=== PATIENT | male | born 1975 | race Two or more races ===

== ENCOUNTER 2020-12-18 03:21 | Inpatient (IN) | payer MEDICAID, OTHER ==
[~2020-12-18] VITALS: Ht 177.8 cm; Wt 80.3 kg
[2020-12-18 05:23] LABS: BASOPHILS % (AUTO) 0.7 % (0.0-2.0); EOSINOPHILS % (AUTO) 0.1 % (1.0-6.0); HEMATOCRIT 49.6 % (41-53); HEMOGLOBIN 16.5 g/dL (13.5-17.5); LYMPHOCYTES # (AUTO) 1.3 K/uL (1.0-4.8); LYMPHOCYTES % (AUTO) 11.5 % (22.0-44.0); MEAN CORPUSCULAR HEMOGLOBIN 29.6 pg (26.0-34.0); MEAN CORPUSCULAR HGB CONC 33.3 G/dL (31.0-37.0); MEAN CORPUSCULAR VOLUME 89 fL (80-100); MONOCYTES # (AUTO) 1.1 K/uL (0.1-1.0); MONOCYTES % (AUTO) 10.4 % (2.0-9.0); NEUTROPHILS # (AUTO) 8.6 K/uL (1.8-7.7); NEUTROPHILS % (AUTO) 77.3 % (40.0-70.0); PLATELET COUNT (AUTO) 274 K/uL (150-450); RED BLOOD CELL COUNT(AUTO) 5.57 MIL/uL (4.50-5.90); RED CELL DISTRIBUTION WIDTH 13.6 % (11.5-14.5)
[2020-12-18 05:31] LABS: ANION GAP 13 mmol/L (8-16); CALCIUM, TOTAL 9.9 mg/dL (8.8-10.5); CARBON DIOXIDE 26 mmol/L (22-29); CHLORIDE 98 mmol/L (98-107); CREATININE 1.35 mg/dL (0.60-1.30); GLOMERULAR FILTR. RATE CALC 57 mL/min (>60); GLUCOSE,RANDOM 124 mg/dL (70-110); SODIUM SERUM 137 mmol/L (136-145); UREA NITROGEN, BLOOD 15 mg/dL (7-18)
[2020-12-18 05:37] LABS: ALANINE AMINOTRANSFERASE 29 U/L (12-78); ALBUMIN 4.6 g/dL (3.4-5.0); ALKALINE PHOSPHATASE 79 U/L (46-116); ASPARTATE AMINOTRANSFERASE 24 U/L (15-37); TOTAL PROTEIN, SERUM 8.9 g/dL (6.4-8.2)
[2020-12-18 07:50] LABS: COVID AG,FIA SOURCE NASAL SWAB
[2020-12-18] MEDS ORDERED: LORazepam 2 MG TABLET PO PRN (09:30)
[2020-12-18] MEDS ORDERED: HALOPERIDOL 5 MG TABLET PO PRN (09:30)
[2020-12-18 09:45] LABS: AMPHET/METH SCREEN,URINE POSITIVE (NEGATIVE); BARBITURATE SCREEN, URINE NEGATIVE (NEGATIVE); BENZODIAZEPINES SCREEN,URINE NEGATIVE (NEGATIVE); CANNABINOID SCREEN,URINE POSITIVE (NEGATIVE); COCAINE SCREEN,URINE NEGATIVE (NEGATIVE); METHADONE SCREEN, URINE NEGATIVE (NEGATIVE); OPIATE SCREEN,URINE NEGATIVE (NEGATIVE)
[2020-12-18 09:49] LABS: PHENCYCLIDINE SCREEN,URINE NEGATIVE (NEGATIVE)
[2020-12-18 09:57] LABS: APPEARANCE,URINE CLEAR (CLEAR); BILIRUBIN,URINE NEGATIVE (NEGATIVE); GLUCOSE, URINE (UA) NEGATIVE (NEGATIVE); KETONES,URINE 40 mg/dL (NEGATIVE); LEUKOCYTE ESTERASE ,URINE NEGATIVE (NEGATIVE); NITRATE,URINE NEGATIVE (NEGATIVE); OCCULT BLOOD,URINE NEGATIVE (NEGATIVE); PH,URINE 5.5 (5.0-8.0); PROTEIN,URINE NEGATIVE (NEGATIVE); UROBILINOGEN,URINE 0.2 mg/dL (<=1.0)
[2020-12-18 14:30] VITALS: BP 130/63
[2020-12-18 18:04] VITALS: BP 117/74
[2020-12-18] MEDS ORDERED: ACETAMINOPHEN 325 MG TABLET PO PRN (21:15)
[2020-12-19] MEDS: ZOLPIDEM TARTRATE 10 MG TABLET PO PRN ×2 (00:17→22:27)
[2020-12-19 00:25] VITALS: BP 112/75
[2020-12-19] MEDS ORDERED: CloNIDine HCL 0.1 MG TABLET PO PRN (06:45)
[2020-12-19] MEDS ORDERED: MAGNESIUM HYDROXIDE SUSPENSION 30 ML UDCUP PO PRN (06:45)
[2020-12-19] MEDS ORDERED: PETROLATUM,WHITE 28 GM JELLY TP PRN (06:45)
[2020-12-19] MEDS ORDERED: GuaiFENesin/D-METHORPHAN [SUGAR-FREE] 200-20MG/10 ML SYRUP UDCUP PO PRN (06:45)
[2020-12-19] MEDS ORDERED: IBUPROFEN 400 MG TABLET PO PRN (06:45)
[2020-12-19] MEDS ORDERED: ACETAMINOPHEN 325 MG TABLET PO PRN (06:45)
[2020-12-19] MEDS ORDERED: LOPERAMIDE HCL 2 MG CAPSULE PO PRN (06:45)
[2020-12-19] MEDS ORDERED: DOCUSATE SODIUM 100 MG CAPSULE PO PRN (06:45)
[2020-12-19] MEDS ORDERED: NICOTINE 14 MG/24 HOUR PATCH TD PRN (06:45)
[2020-12-19] MEDS ORDERED: ALBUTEROL SULFATE HFA 90 MCG/PUFF 8 GM INHALER IH PRN (06:45)
[2020-12-19] MEDS ORDERED: ONDANSETRON HCL 4 MG TABLET PO PRN (06:45)
[2020-12-19] MEDS ORDERED: MAG HYDROX/AL HYDROX/SIMETH ES 30 ML SUSPENSION UDCUP PO PRN (06:45)
[2020-12-19 07:27] LABS: CHOL/HDL RATIO 4.9 (4.2-7.3)
[2020-12-19 10:37] VITALS: BP 143/90
[2020-12-19] MEDS: CITALOPRAM HYDROBROMIDE 20 MG TABLET PO SCH (12:58)
[2020-12-19 16:00] VITALS: BP 120/66
[2020-12-20] MEDS: CITALOPRAM HYDROBROMIDE 20 MG TABLET PO SCH (08:12)
[2020-12-20 10:50] VITALS: BP 116/85
[2020-12-20 16:18] VITALS: BP 119/65
[2020-12-21] MEDS: CITALOPRAM HYDROBROMIDE 20 MG TABLET PO SCH (08:07)
[2020-12-21 08:49] VITALS: BP 113/74
[2020-12-21] MEDS ORDERED: OS500 PO (14:25)
[2020-12-21] MEDS ORDERED: CITA-144 PO (14:25)
[2020-12-21] MEDS ORDERED: CALCIUM OYSTER SHELL 500 MG TABLET PO SCH (17:00)
== END 2020-12-21 15:00 | disposition home or self-care (01) | DRG 754 ==
LOC: EMS 03:27 → 3EI 09:21
PROVIDERS: ADMIT Psychiatry & Neurology Psychiatry; ATTEND Psychiatry & Neurology Psychiatry
DX: F32.9 Major depressive disorder, single episode, unspecified (principal); F15.10 Other stimulant abuse, uncomplicated; Z20.822 Contact with and (suspected) exposure to COVID-19; D72.829 Elevated white blood cell count, unspecified; N17.9 Acute kidney failure, unspecified; E78.5 Hyperlipidemia, unspecified; F19.10 Other psychoactive substance abuse, uncomplicated; F10.10 Alcohol abuse, uncomplicated
CPT/HCPCS: 87426; 99285; G0480

== ENCOUNTER 2021-06-28 00:25 | Emergency (ER) | payer MEDICAID ==
[~2021-06-28] VITALS: Ht 177.8 cm; Wt 81.8 kg
[~2021-06-28 00:25] MED LIST: CITA-144 PO; OS500 PO
[2021-06-28] MEDS ORDERED: ZOLPIDEM TARTRATE 10 MG TABLET PO PRN (01:45)
[2021-06-28] MEDS ORDERED: HALOPERIDOL 5 MG TABLET PO PRN (01:45)
[2021-06-28] MEDS ORDERED: LORazepam 2 MG TABLET PO PRN (01:45)
[2021-06-28 02:39] LABS: BASOPHILS % (AUTO) 0.7 % (0.0-2.0); EOSINOPHILS % (AUTO) 0.5 % (1.0-6.0); HEMATOCRIT 42.3 % (41-53); HEMOGLOBIN 14.4 g/dL (13.5-17.5); LYMPHOCYTES # (AUTO) 2.1 K/uL (1.0-4.8); LYMPHOCYTES % (AUTO) 24.8 % (22.0-44.0); MEAN CORPUSCULAR HEMOGLOBIN 30.3 pg (26.0-34.0); MEAN CORPUSCULAR VOLUME 89 fL (80-100); MONOCYTES # (AUTO) 0.7 K/uL (0.1-1.0); MONOCYTES % (AUTO) 8.2 % (2.0-9.0); NEUTROPHILS # (AUTO) 5.6 K/uL (1.8-7.7); NEUTROPHILS % (AUTO) 65.8 % (40.0-70.0); PLATELET COUNT (AUTO) 276 K/uL (150-450); RED BLOOD CELL COUNT(AUTO) 4.74 MIL/uL (4.50-5.90)
[2021-06-28 02:56] LABS: ALANINE AMINOTRANSFERASE 30 U/L (12-78); ALBUMIN 4.1 g/dL (3.4-5.0); ALKALINE PHOSPHATASE 86 U/L (46-116); ANION GAP 8 mmol/L (8-16); ASPARTATE AMINOTRANSFERASE 23 U/L (15-37); BILIRUBIN,TOTAL 0.6 mg/dL (0.1-1.0); CALCIUM, TOTAL 9.1 mg/dL (8.8-10.5); CARBON DIOXIDE 30 mmol/L (22-29); CHLORIDE 103 mmol/L (98-107); GLUCOSE,RANDOM 91 mg/dL (70-110); POTASSIUM 4.5 mmol/L (3.5-5.1); SODIUM SERUM 141 mmol/L (136-145); TOTAL PROTEIN, SERUM 7.9 g/dL (6.4-8.2); UREA NITROGEN, BLOOD 17 mg/dL (7-18)
[2021-06-28 02:59] LABS: ACETAMINOPHEN < 2 mcg/mL (10-30)
[2021-06-28 03:04] LABS: CREATININE 1.12 mg/dL (0.60-1.30); GLOMERULAR FILTR. RATE CALC > 60 mL/min (>60)
[2021-06-28 03:16] LABS: SALICYLATE 0.9 mg/dL (2.8-20.0)
[2021-06-28 04:54] LABS: COVID AG,FIA SOURCE NASOPHARYNGEAL
[2021-06-28 07:54] LABS: APPEARANCE,URINE CLEAR (CLEAR); BILIRUBIN,URINE NEGATIVE (NEGATIVE); GLUCOSE, URINE (UA) NEGATIVE (NEGATIVE); KETONES,URINE 15 mg/dL (NEGATIVE); LEUKOCYTE ESTERASE ,URINE NEGATIVE (NEGATIVE); NITRATE,URINE NEGATIVE (NEGATIVE); OCCULT BLOOD,URINE NEGATIVE (NEGATIVE); PH,URINE 5.5 (5.0-8.0); PROTEIN,URINE NEGATIVE (NEGATIVE); UROBILINOGEN,URINE 0.2 mg/dL (<=1.0)
[2021-06-28 07:59] LABS: AMPHET/METH SCREEN,URINE POSITIVE (NEGATIVE); BARBITURATE SCREEN, URINE NEGATIVE (NEGATIVE); BENZODIAZEPINES SCREEN,URINE NEGATIVE (NEGATIVE); CANNABINOID SCREEN,URINE NEGATIVE (NEGATIVE); COCAINE SCREEN,URINE NEGATIVE (NEGATIVE); METHADONE SCREEN, URINE NEGATIVE (NEGATIVE); OPIATE SCREEN,URINE NEGATIVE (NEGATIVE); PHENCYCLIDINE SCREEN,URINE NEGATIVE (NEGATIVE)
[2021-06-28 10:45] VITALS: BP 124/76
== END 2021-06-28 10:45 | disposition home or self-care (01) ==
LOC: EMS 00:27
DX: F32.9 Major depressive disorder, single episode, unspecified (principal); R45.851 Suicidal ideations; F15.10 Other stimulant abuse, uncomplicated; F20.9 Schizophrenia, unspecified; Z79.899 Other long term (current) drug therapy; Z20.822 Contact with and (suspected) exposure to COVID-19
CPT/HCPCS: 36415; 80053; 80307; 81003; 85025; 87426; 99285; G0480; G0481

== ENCOUNTER 2021-07-21 01:55 | Inpatient (IN) | payer MEDICAID ==
[~2021-07-21] VITALS: Ht 177.8 cm; Wt 78.9 kg
[2021-07-21 03:02] LABS: COVID AG,FIA SOURCE NASOPHARYNGEAL
[2021-07-21 03:10] LABS: BASOPHILS % (AUTO) 0.7 % (0.0-2.0); EOSINOPHILS % (AUTO) 0.2 % (1.0-6.0); HEMATOCRIT 45.1 % (41-53); HEMOGLOBIN 15.4 g/dL (13.5-17.5); LYMPHOCYTES # (AUTO) 1.5 K/uL (1.0-4.8); LYMPHOCYTES % (AUTO) 17.1 % (22.0-44.0); MEAN CORPUSCULAR HGB CONC 34.1 G/dL (31.0-37.0); MEAN CORPUSCULAR VOLUME 88 fL (80-100); MONOCYTES # (AUTO) 0.9 K/uL (0.1-1.0); MONOCYTES % (AUTO) 9.9 % (2.0-9.0); NEUTROPHILS # (AUTO) 6.3 K/uL (1.8-7.7); NEUTROPHILS % (AUTO) 72.1 % (40.0-70.0); PLATELET COUNT (AUTO) 309 K/uL (150-450); RED BLOOD CELL COUNT(AUTO) 5.12 MIL/uL (4.50-5.90); RED CELL DISTRIBUTION WIDTH 12.7 % (11.5-14.5)
[2021-07-21] MEDS ORDERED: ZOLPIDEM TARTRATE 10 MG TABLET PO PRN (03:15)
[2021-07-21] MEDS ORDERED: LORazepam 2 MG TABLET PO PRN (03:15)
[2021-07-21] MEDS ORDERED: HALOPERIDOL 5 MG TABLET PO PRN (03:15)
[2021-07-21 03:23] LABS: ANION GAP 6 mmol/L (8-16); CALCIUM, TOTAL 9.3 mg/dL (8.8-10.5); CARBON DIOXIDE 29 mmol/L (22-29); CHLORIDE 102 mmol/L (98-107); GLOMERULAR FILTR. RATE CALC > 60 mL/min (>60); GLUCOSE,RANDOM 108 mg/dL (70-110); POTASSIUM 3.6 mmol/L (3.5-5.1); SODIUM SERUM 137 mmol/L (136-145); UREA NITROGEN, BLOOD 12 mg/dL (7-18)
[2021-07-21 03:29] LABS: ALANINE AMINOTRANSFERASE 24 U/L (12-78); ALBUMIN 4.2 g/dL (3.4-5.0); ALKALINE PHOSPHATASE 85 U/L (46-116); ASPARTATE AMINOTRANSFERASE 17 U/L (15-37); BILIRUBIN,TOTAL 0.7 mg/dL (0.1-1.0); TOTAL PROTEIN, SERUM 8.1 g/dL (6.4-8.2)
[2021-07-21 06:59] LABS: AMPHET/METH SCREEN,URINE POSITIVE (NEGATIVE); BARBITURATE SCREEN, URINE NEGATIVE (NEGATIVE); BENZODIAZEPINES SCREEN,URINE NEGATIVE (NEGATIVE); CANNABINOID SCREEN,URINE NEGATIVE (NEGATIVE); COCAINE SCREEN,URINE NEGATIVE (NEGATIVE); METHADONE SCREEN, URINE NEGATIVE (NEGATIVE); OPIATE SCREEN,URINE NEGATIVE (NEGATIVE)
[2021-07-21 07:02] LABS: PHENCYCLIDINE SCREEN,URINE NEGATIVE (NEGATIVE)
[2021-07-21 07:07] LABS: APPEARANCE,URINE CLEAR (CLEAR); BILIRUBIN,URINE NEGATIVE (NEGATIVE); GLUCOSE, URINE (UA) NEGATIVE (NEGATIVE); KETONES,URINE NEGATIVE (NEGATIVE); LEUKOCYTE ESTERASE ,URINE NEGATIVE (NEGATIVE); NITRATE,URINE NEGATIVE (NEGATIVE); OCCULT BLOOD,URINE NEGATIVE (NEGATIVE); PROTEIN,URINE NEGATIVE (NEGATIVE); UROBILINOGEN,URINE 0.2 mg/dL (<=1.0)
[2021-07-21] MEDS ORDERED: HALOPERIDOL LACTATE 5 MG/ML VIAL ONE (09:52)
[2021-07-21] MEDS ORDERED: LORazepam 2 MG/ML VIAL ONE (09:52)
[2021-07-21] MEDS ORDERED: DiphenhydrAMINE HCL 50 MG/ML VIAL ONE (09:53)
[2021-07-21] MEDS ORDERED: LORazepam 2 MG/ML VIAL IM ONE (10:00)
[2021-07-21] MEDS ORDERED: HALOPERIDOL LACTATE 5 MG/ML VIAL IM ONE (10:00)
[2021-07-21] MEDS ORDERED: DiphenhydrAMINE HCL 50 MG/ML VIAL IM ONE (10:00)
[2021-07-21 11:20] VITALS: BP 112/76
[2021-07-21] MEDS ORDERED: MAGNESIUM HYDROXIDE SUSPENSION 30 ML UDCUP PO PRN (11:45)
[2021-07-21] MEDS ORDERED: ONDANSETRON HCL 4 MG TABLET PO PRN (11:45)
[2021-07-21] MEDS ORDERED: MAG HYDROX/AL HYDROX/SIMETH ES 30 ML SUSPENSION UDCUP PO PRN (11:45)
[2021-07-21] MEDS ORDERED: PETROLATUM,WHITE 28 GM JELLY TP PRN (11:45)
[2021-07-21] MEDS ORDERED: ALBUTEROL SULFATE HFA 90 MCG/PUFF 8 GM INHALER IH PRN (11:45)
[2021-07-21] MEDS ORDERED: IBUPROFEN 400 MG TABLET PO PRN (11:45)
[2021-07-21] MEDS ORDERED: LOPERAMIDE HCL 2 MG CAPSULE PO PRN (11:45)
[2021-07-21] MEDS ORDERED: DOCUSATE SODIUM 100 MG CAPSULE PO PRN (11:45)
[2021-07-21] MEDS ORDERED: CloNIDine HCL 0.1 MG TABLET PO PRN (11:45)
[2021-07-21] MEDS ORDERED: NICOTINE 14 MG/24 HOUR PATCH TD PRN (11:45)
[2021-07-21] MEDS ORDERED: GuaiFENesin/D-METHORPHAN [SUGAR-FREE] 200-20MG/10 ML SYRUP UDCUP PO PRN (11:45)
[2021-07-21] MEDS ORDERED: ACETAMINOPHEN 325 MG TABLET PO PRN (11:45)
[2021-07-21] MEDS ORDERED: INFLUENZA VIRUS VACCINE QVS 2021-22 (6MO+)/PF 60 MCG/0.5 ML SYRINGE IM. ONE (13:30)
[2021-07-21 16:18] VITALS: BP 108/68
[2021-07-21] MEDS: OLANZapine 5 MG TABLET PO SCH (20:57)
[2021-07-22 06:36] VITALS: BP 95/60
[2021-07-22 07:38] LABS: CHOL/HDL RATIO 3.6 (4.2-7.3)
[2021-07-22 08:12] VITALS: BP 97/60
[2021-07-22] MEDS: OLANZapine 5 MG TABLET PO SCH ×2 (09:32→21:15)
[2021-07-22 16:11] VITALS: BP 112/63
[2021-07-23 05:35] VITALS: BP 91/61
[2021-07-23 08:10] VITALS: BP 116/74
[2021-07-23] MEDS: OLANZapine 5 MG TABLET PO SCH ×2 (08:59→20:31)
[2021-07-23 16:11] VITALS: BP 126/74
[2021-07-24 02:36] VITALS: BP 103/72
[2021-07-24 08:21] VITALS: BP 134/92
[2021-07-24] MEDS: OLANZapine 5 MG TABLET PO SCH (08:38)
[2021-07-24] MEDS ORDERED: OLAN5TAB52 PO (11:14)
== END 2021-07-24 13:00 | disposition home or self-care (01) | DRG 750 ==
LOC: EMS 01:56 → B3A 06:24
DX: F25.0 Schizoaffective disorder, bipolar type (principal); I95.9 Hypotension, unspecified; R45.851 Suicidal ideations; F25.1 Schizoaffective disorder, depressive type; F15.10 Other stimulant abuse, uncomplicated; G47.00 Insomnia, unspecified; K59.00 Constipation, unspecified; F32.A Depression, unspecified; Z20.822 Contact with and (suspected) exposure to COVID-19; Z65.3 Problems related to other legal circumstances; Z79.899 Other long term (current) drug therapy
CPT/HCPCS: 80053; 80061; 81003; 85025; 99285; G0480; J1200; J1630; J2060

== ENCOUNTER 2021-09-20 02:47 | Inpatient (IN) | payer MEDICAID ==
[~2021-09-20] VITALS: Ht 177.8 cm; Wt 82.7 kg
[~2021-09-20 02:47] MED LIST changes: -CITA-144 PO; +OLAN5TAB52 PO; -OS500 PO
[2021-09-20 03:26] LABS: BASOPHILS % (AUTO) 0.6 % (0.0-2.0); EOSINOPHILS % (AUTO) 0.1 % (1.0-6.0); HEMATOCRIT 41.5 % (41-53); HEMOGLOBIN 14.2 g/dL (13.5-17.5); LYMPHOCYTES # (AUTO) 1.1 K/uL (1.0-4.8); LYMPHOCYTES % (AUTO) 13.6 % (22.0-44.0); MEAN CORPUSCULAR HEMOGLOBIN 29.6 pg (26.0-34.0); MEAN CORPUSCULAR HGB CONC 34.1 G/dL (31.0-37.0); MEAN CORPUSCULAR VOLUME 87 fL (80-100); MONOCYTES # (AUTO) 0.7 K/uL (0.1-1.0); MONOCYTES % (AUTO) 8.4 % (2.0-9.0); NEUTROPHILS # (AUTO) 6.2 K/uL (1.8-7.7); NEUTROPHILS % (AUTO) 77.3 % (40.0-70.0); PLATELET COUNT (AUTO) 280 K/uL (150-450); RED BLOOD CELL COUNT(AUTO) 4.79 MIL/uL (4.50-5.90); RED CELL DISTRIBUTION WIDTH 13.3 % (11.5-14.5)
[2021-09-20] MEDS ORDERED: HALOPERIDOL 5 MG TABLET PO PRN (03:45)
[2021-09-20] MEDS ORDERED: LORazepam 2 MG TABLET PO PRN (03:45)
[2021-09-20 04:12] LABS: ANION GAP 12 mmol/L (8-16); CALCIUM, TOTAL 9.5 mg/dL (8.8-10.5); CARBON DIOXIDE 26 mmol/L (22-29); CHLORIDE 97 mmol/L (98-107); GLOMERULAR FILTR. RATE CALC > 60 mL/min (>60); GLUCOSE,RANDOM 88 mg/dL (70-110); POTASSIUM 4.4 mmol/L (3.5-5.1); SODIUM SERUM 135 mmol/L (136-145); UREA NITROGEN, BLOOD 12 mg/dL (7-18)
[2021-09-20 04:18] LABS: COVID AG,FIA SOURCE NASOPHARYNGEAL
[2021-09-20 04:18] LABS: ALANINE AMINOTRANSFERASE 38 U/L (12-78); ALBUMIN 4.1 g/dL (3.4-5.0); ALKALINE PHOSPHATASE 87 U/L (46-116); ASPARTATE AMINOTRANSFERASE 46 U/L (15-37); BILIRUBIN,TOTAL 0.8 mg/dL (0.1-1.0); TOTAL PROTEIN, SERUM 7.8 g/dL (6.4-8.2)
[2021-09-20 04:34] LABS: APPEARANCE,URINE CLEAR (CLEAR); BILIRUBIN,URINE NEGATIVE (NEGATIVE); GLUCOSE, URINE (UA) NEGATIVE (NEGATIVE); KETONES,URINE 40 mg/dL (NEGATIVE); LEUKOCYTE ESTERASE ,URINE NEGATIVE (NEGATIVE); NITRATE,URINE NEGATIVE (NEGATIVE); OCCULT BLOOD,URINE NEGATIVE (NEGATIVE); PROTEIN,URINE NEGATIVE (NEGATIVE); UROBILINOGEN,URINE 0.2 mg/dL (<=1.0)
[2021-09-20 04:36] LABS: AMPHET/METH SCREEN,URINE POSITIVE (NEGATIVE); BARBITURATE SCREEN, URINE NEGATIVE (NEGATIVE); BENZODIAZEPINES SCREEN,URINE NEGATIVE (NEGATIVE); CANNABINOID SCREEN,URINE NEGATIVE (NEGATIVE); COCAINE SCREEN,URINE NEGATIVE (NEGATIVE); METHADONE SCREEN, URINE NEGATIVE (NEGATIVE); OPIATE SCREEN,URINE NEGATIVE (NEGATIVE); PHENCYCLIDINE SCREEN,URINE NEGATIVE (NEGATIVE)
[2021-09-20] MEDS ORDERED: MAGNESIUM HYDROXIDE SUSPENSION 30 ML UDCUP PO PRN (07:15)
[2021-09-20] MEDS ORDERED: GuaiFENesin/D-METHORPHAN [SUGAR-FREE] 200-20MG/10 ML SYRUP UDCUP PO PRN (07:15)
[2021-09-20] MEDS ORDERED: ACETAMINOPHEN 325 MG TABLET PO PRN (07:15)
[2021-09-20] MEDS ORDERED: CloNIDine HCL 0.1 MG TABLET PO PRN (07:15)
[2021-09-20] MEDS ORDERED: IBUPROFEN 400 MG TABLET PO PRN (07:15)
[2021-09-20] MEDS ORDERED: DOCUSATE SODIUM 100 MG CAPSULE PO PRN (07:15)
[2021-09-20] MEDS ORDERED: MAG HYDROX/AL HYDROX/SIMETH ES 30 ML SUSPENSION UDCUP PO PRN (07:15)
[2021-09-20] MEDS ORDERED: NICOTINE 14 MG/24 HOUR PATCH TD PRN (07:15)
[2021-09-20] MEDS ORDERED: ONDANSETRON HCL 4 MG TABLET PO PRN (07:15)
[2021-09-20] MEDS ORDERED: ALBUTEROL SULFATE HFA 90 MCG/PUFF 8 GM INHALER IH PRN (07:15)
[2021-09-20] MEDS ORDERED: LOPERAMIDE HCL 2 MG CAPSULE PO PRN (07:15)
[2021-09-20] MEDS ORDERED: PETROLATUM,WHITE 28 GM JELLY TP PRN (07:15)
[2021-09-20 16:58] VITALS: BP 140/90
[2021-09-20] MEDS ORDERED: INFLUENZA VIRUS VACCINE QVS 2021-22 (6MO+)/PF 60 MCG/0.5 ML SYRINGE IM. ONE (17:30)
[2021-09-20 18:49] VITALS: BP 140/90
[2021-09-21 00:45] VITALS: BP 109/64
[2021-09-21 07:37] LABS: CHOL/HDL RATIO 3.3 (4.2-7.3)
[2021-09-21 08:36] VITALS: BP 126/76
[2021-09-21 16:16] VITALS: BP 123/72
[2021-09-21] MEDS: ZOLPIDEM TARTRATE 10 MG TABLET PO PRN (20:15)
[2021-09-21] MEDS: OLANZapine 5 MG TABLET PO SCH (20:15)
[2021-09-22 01:02] VITALS: BP 118/78
[2021-09-22 08:27] VITALS: BP 126/57
[2021-09-22] MEDS: CITALOPRAM HYDROBROMIDE 20 MG TABLET PO SCH (08:35)
[2021-09-22] MEDS: OLANZapine 5 MG TABLET PO SCH ×2 (08:36→20:39)
[2021-09-22 16:15] VITALS: BP 107/64
[2021-09-23 04:00] VITALS: BP 105/61
[2021-09-23 08:13] VITALS: BP 112/65
[2021-09-23] MEDS: OLANZapine 5 MG TABLET PO SCH ×2 (09:40→20:57)
[2021-09-23] MEDS: CITALOPRAM HYDROBROMIDE 20 MG TABLET PO SCH (09:40)
[2021-09-23 16:18] VITALS: BP 130/78
[2021-09-24 04:51] VITALS: BP 111/68
[2021-09-24 08:30] VITALS: BP 117/64
[2021-09-24] MEDS: CITALOPRAM HYDROBROMIDE 20 MG TABLET PO SCH (08:36)
[2021-09-24] MEDS: OLANZapine 5 MG TABLET PO SCH ×2 (08:36→20:07)
[2021-09-24 16:16] VITALS: BP 101/63
[2021-09-24] MEDS: ZOLPIDEM TARTRATE 10 MG TABLET PO PRN (20:15)
[2021-09-25 06:18] VITALS: BP 109/60
[2021-09-25 08:12] VITALS: BP 112/61
[2021-09-25] MEDS: CITALOPRAM HYDROBROMIDE 20 MG TABLET PO SCH (09:14)
[2021-09-25] MEDS: OLANZapine 5 MG TABLET PO SCH (09:14)
[2021-09-25] MEDS ORDERED: CITA-144 PO (11:35)
== END 2021-09-25 15:27 | disposition home or self-care (01) | DRG 750 ==
LOC: EMS 02:50 → B2S 14:08
PROVIDERS: ADMIT Psychiatry & Neurology Child & Adolescent Psychiatry; ATTEND Psychiatry & Neurology Child & Adolescent Psychiatry
DX: F25.1 Schizoaffective disorder, depressive type (principal); E87.1 Hypo-osmolality and hyponatremia; R45.851 Suicidal ideations; Z20.822 Contact with and (suspected) exposure to COVID-19; F15.10 Other stimulant abuse, uncomplicated; R74.01 Elevation of levels of liver transaminase levels; F10.10 Alcohol abuse, uncomplicated; F17.200 Nicotine dependence, unspecified, uncomplicated; Z71.6 Tobacco abuse counseling; Z71.41 Alcohol abuse counseling and surveillance of alcoholic; Z71.51 Drug abuse counseling and surveillance of drug abuser; Z59.00 Homelessness unspecified
CPT/HCPCS: 80053; 80061; 81003; 85025; 99285; G0480

== ENCOUNTER 2021-11-02 22:07 | Inpatient (IN) | payer MEDICAID ==
[~2021-11-02] VITALS: Ht 177.8 cm; Wt 81.3 kg
[~2021-11-02 22:07] MED LIST changes: +CITA-144 PO
[2021-11-03 00:13] LABS: AMPHET/METH SCREEN,URINE POSITIVE (NEGATIVE); BARBITURATE SCREEN, URINE NEGATIVE (NEGATIVE); BENZODIAZEPINES SCREEN,URINE NEGATIVE (NEGATIVE); CANNABINOID SCREEN,URINE POSITIVE (NEGATIVE); COCAINE SCREEN,URINE NEGATIVE (NEGATIVE); METHADONE SCREEN, URINE NEGATIVE (NEGATIVE); OPIATE SCREEN,URINE NEGATIVE (NEGATIVE)
[2021-11-03 00:14] LABS: PHENCYCLIDINE SCREEN,URINE NEGATIVE (NEGATIVE)
[2021-11-03] MEDS ORDERED: LORazepam 1 MG TABLET PO ONE (01:00)
[2021-11-03] MEDS ORDERED: OLANZapine 5 MG TABLET PO ONE (01:00)
[2021-11-03 01:17] LABS: BASOPHILS % (AUTO) 0.6 % (0.0-2.0); EOSINOPHILS % (AUTO) 0.2 % (1.0-6.0); HEMATOCRIT 40.2 % (41-53); HEMOGLOBIN 14.1 g/dL (13.5-17.5); LYMPHOCYTES # (AUTO) 2.1 K/uL (1.0-4.8); LYMPHOCYTES % (AUTO) 22.7 % (22.0-44.0); MEAN CORPUSCULAR HEMOGLOBIN 30.1 pg (26.0-34.0); MEAN CORPUSCULAR VOLUME 86 fL (80-100); MONOCYTES # (AUTO) 0.9 K/uL (0.1-1.0); MONOCYTES % (AUTO) 9.1 % (2.0-9.0); NEUTROPHILS # (AUTO) 6.3 K/uL (1.8-7.7); NEUTROPHILS % (AUTO) 67.4 % (40.0-70.0); PLATELET COUNT (AUTO) 228 K/uL (150-450); RED BLOOD CELL COUNT(AUTO) 4.67 MIL/uL (4.50-5.90)
[2021-11-03 01:27] LABS: ANION GAP 6 mmol/L (8-16); CALCIUM, TOTAL 9.4 mg/dL (8.8-10.5); CARBON DIOXIDE 30 mmol/L (22-29); CHLORIDE 103 mmol/L (98-107); CREATININE 1.11 mg/dL (0.60-1.30); GLOMERULAR FILTR. RATE CALC > 60 mL/min (>60); GLUCOSE,RANDOM 111 mg/dL (70-110); SODIUM SERUM 139 mmol/L (136-145); UREA NITROGEN, BLOOD 12 mg/dL (7-18)
[2021-11-03] MEDS ORDERED: ZOLPIDEM TARTRATE 10 MG TABLET PO PRN (01:30)
[2021-11-03] MEDS ORDERED: LORazepam 2 MG TABLET PO PRN (01:30)
[2021-11-03] MEDS ORDERED: HALOPERIDOL 5 MG TABLET PO PRN (01:30)
[2021-11-03 01:33] LABS: ALANINE AMINOTRANSFERASE 22 U/L (12-78); ALBUMIN 4.1 g/dL (3.4-5.0); ALKALINE PHOSPHATASE 88 U/L (46-116); ASPARTATE AMINOTRANSFERASE 16 U/L (15-37); BILIRUBIN,TOTAL 0.7 mg/dL (0.1-1.0); TOTAL PROTEIN, SERUM 7.8 g/dL (6.4-8.2)
[2021-11-03 01:37] LABS: COVID AG,FIA SOURCE NASAL SWAB
[2021-11-03 01:43] LABS: APPEARANCE,URINE CLEAR (CLEAR); BILIRUBIN,URINE NEGATIVE (NEGATIVE); GLUCOSE, URINE (UA) NEGATIVE (NEGATIVE); KETONES,URINE TRACE mg/dL (NEGATIVE); LEUKOCYTE ESTERASE ,URINE NEGATIVE (NEGATIVE); NITRATE,URINE NEGATIVE (NEGATIVE); OCCULT BLOOD,URINE NEGATIVE (NEGATIVE); PH,URINE 5.5 (5.0-8.0); PROTEIN,URINE NEGATIVE (NEGATIVE); UROBILINOGEN,URINE 0.2 mg/dL (<=1.0)
[2021-11-03 01:50] LABS: BACTERIA,URINE Moderate /HPF (None Seen); RBC,URINE 0-2 /HPF (0-2); WBC,URINE 0-2 /HPF (0-5)
[2021-11-03 10:11] VITALS: BP 120/77
[2021-11-03] MEDS ORDERED: IBUPROFEN 400 MG TABLET PO PRN (11:15)
[2021-11-03] MEDS ORDERED: DOCUSATE SODIUM 100 MG CAPSULE PO PRN (11:15)
[2021-11-03] MEDS ORDERED: ONDANSETRON HCL 4 MG TABLET PO PRN (11:15)
[2021-11-03] MEDS ORDERED: MAGNESIUM HYDROXIDE SUSPENSION 30 ML UDCUP PO PRN (11:15)
[2021-11-03] MEDS ORDERED: ACETAMINOPHEN 325 MG TABLET PO PRN (11:15)
[2021-11-03] MEDS ORDERED: LOPERAMIDE HCL 2 MG CAPSULE PO PRN (11:15)
[2021-11-03] MEDS ORDERED: ALBUTEROL SULFATE HFA 90 MCG/PUFF 8 GM INHALER IH PRN (11:15)
[2021-11-03] MEDS ORDERED: CloNIDine HCL 0.1 MG TABLET PO PRN (11:15)
[2021-11-03] MEDS ORDERED: GuaiFENesin/D-METHORPHAN [SUGAR-FREE] 200-20MG/10 ML SYRUP UDCUP PO PRN (11:15)
[2021-11-03] MEDS ORDERED: MAG HYDROX/AL HYDROX/SIMETH ES 30 ML SUSPENSION UDCUP PO PRN (11:15)
[2021-11-03] MEDS ORDERED: PETROLATUM,WHITE 28 GM JELLY TP PRN (11:15)
[2021-11-03] MEDS ORDERED: NICOTINE 14 MG/24 HOUR PATCH TD PRN (11:15)
[2021-11-03] MEDS: OLANZapine 5 MG TABLET PO SCH ×2 (12:32→20:30)
[2021-11-03] MEDS: CITALOPRAM HYDROBROMIDE 20 MG TABLET PO SCH (12:32)
[2021-11-03 16:13] VITALS: BP 102/63
[2021-11-03 17:18] VITALS: BP 125/69
[2021-11-04 02:26] VITALS: BP 119/62
[2021-11-04 07:58] LABS: CHOL/HDL RATIO 3.6 (4.2-7.3)
[2021-11-04 08:23] VITALS: BP 110/64
[2021-11-04] MEDS: CITALOPRAM HYDROBROMIDE 20 MG TABLET PO SCH (08:37)
[2021-11-04] MEDS: OLANZapine 5 MG TABLET PO SCH ×2 (08:37→20:33)
[2021-11-04 16:22] VITALS: BP 107/67
[2021-11-05 05:18] VITALS: BP 116/64
[2021-11-05 08:04] VITALS: BP 118/70
[2021-11-05] MEDS: CITALOPRAM HYDROBROMIDE 20 MG TABLET PO SCH (08:32)
[2021-11-05] MEDS: OLANZapine 5 MG TABLET PO SCH ×2 (08:32→20:46)
[2021-11-05 16:05] VITALS: BP 119/68
[2021-11-06 04:39] VITALS: BP 116/62
[2021-11-06] MEDS: OLANZapine 5 MG TABLET PO SCH (08:17)
[2021-11-06] MEDS: CITALOPRAM HYDROBROMIDE 20 MG TABLET PO SCH (08:17)
[2021-11-06 08:18] VITALS: BP 110/70
[2021-11-06 16:25] VITALS: BP 110/67
[2021-11-06] MEDS: OLANZapine 10 MG TABLET PO SCH (20:38)
[2021-11-07 06:54] VITALS: BP 117/69
[2021-11-07] MEDS: OLANZapine 10 MG TABLET PO SCH ×2 (08:08→20:18)
[2021-11-07] MEDS: CITALOPRAM HYDROBROMIDE 20 MG TABLET PO SCH (08:08)
[2021-11-07 08:28] VITALS: BP 123/74
[2021-11-07 16:13] VITALS: BP 134/72
[2021-11-08 04:47] VITALS: BP 122/67
[2021-11-08] MEDS: OLANZapine 10 MG TABLET PO SCH (08:20)
[2021-11-08] MEDS: CITALOPRAM HYDROBROMIDE 20 MG TABLET PO SCH (08:20)
[2021-11-08 08:51] VITALS: BP 126/84
[2021-11-08] MEDS ORDERED: CITA-144 PO (13:18)
[2021-11-08] MEDS ORDERED: OLAN10 PO (13:18)
== END 2021-11-08 15:30 | disposition home or self-care (01) | DRG 750 ==
LOC: EMS 22:09 → B3A 11-03 06:37
PROVIDERS: ADMIT Psychiatry & Neurology Child & Adolescent Psychiatry; ATTEND Psychiatry & Neurology Child & Adolescent Psychiatry
DX: F25.1 Schizoaffective disorder, depressive type (principal); R45.851 Suicidal ideations; Z59.00 Homelessness unspecified; F15.10 Other stimulant abuse, uncomplicated; Z20.822 Contact with and (suspected) exposure to COVID-19; F17.200 Nicotine dependence, unspecified, uncomplicated; F31.9 Bipolar disorder, unspecified; F41.9 Anxiety disorder, unspecified; F12.20 Cannabis dependence, uncomplicated; Z79.899 Other long term (current) drug therapy; Z91.14 Patient's other noncompliance with medication regimen
CPT/HCPCS: 80053; 80061; 81001; 85025; 87086; 93005; 99285; G0480

== ENCOUNTER 2022-04-26 06:16 | Emergency (ER) | payer MEDICAID ==
[~2022-04-26] VITALS: Ht 177.8 cm; Wt 81.8 kg
[~2022-04-26 06:16] MED LIST changes: +OLAN10 PO; -OLAN5TAB52 PO
[2022-04-26 07:28] LABS: BASOPHILS % (AUTO) 0.6 % (0.0-2.0); EOSINOPHILS % (AUTO) 0.3 % (1.0-6.0); HEMATOCRIT 41.1 % (41-53); HEMOGLOBIN 13.9 g/dL (13.5-17.5); LYMPHOCYTES # (AUTO) 1.6 K/uL (1.0-4.8); MEAN CORPUSCULAR HEMOGLOBIN 29.7 pg (26.0-34.0); MEAN CORPUSCULAR HGB CONC 33.9 G/dL (31.0-37.0); MEAN CORPUSCULAR VOLUME 88 fL (80-100); MONOCYTES # (AUTO) 1.1 K/uL (0.1-1.0); MONOCYTES % (AUTO) 12.8 % (2.0-9.0); NEUTROPHILS # (AUTO) 5.6 K/uL (1.8-7.7); NEUTROPHILS % (AUTO) 67.3 % (40.0-70.0); PLATELET COUNT (AUTO) 286 K/uL (150-450); RED BLOOD CELL COUNT(AUTO) 4.69 MIL/uL (4.50-5.90); RED CELL DISTRIBUTION WIDTH 13.4 % (11.5-14.5)
[2022-04-26 07:50] LABS: ANION GAP 10 mmol/L (8-16); CALCIUM, TOTAL 9.7 mg/dL (8.8-10.5); CARBON DIOXIDE 25 mmol/L (22-29); CHLORIDE 99 mmol/L (98-107); CREATININE 1.28 mg/dL (0.60-1.30); GLUCOSE,RANDOM 97 mg/dL (70-110); POTASSIUM 4.5 mmol/L (3.5-5.1); SODIUM SERUM 134 mmol/L (136-145); UREA NITROGEN, BLOOD 28 mg/dL (7-18)
[2022-04-26 07:52] LABS: GLOMERULAR FILTR. RATE CALC 60 mL/min (>60)
[2022-04-26 07:55] LABS: ALBUMIN 5.1 g/dL (3.4-5.0); ALKALINE PHOSPHATASE 103 U/L (46-116); ASPARTATE AMINOTRANSFERASE 30 U/L (15-37); BILIRUBIN,TOTAL 1.1 mg/dL (0.1-1.0)
[2022-04-26 08:06] LABS: ALANINE AMINOTRANSFERASE 45 U/L (12-78); TOTAL PROTEIN, SERUM 7.9 g/dL (6.4-8.2)
[2022-04-26 08:13] LABS: AMPHET/METH SCREEN,URINE POSITIVE (NEGATIVE); BARBITURATE SCREEN, URINE NEGATIVE (NEGATIVE); BENZODIAZEPINES SCREEN,URINE NEGATIVE (NEGATIVE); CANNABINOID SCREEN,URINE POSITIVE (NEGATIVE); METHADONE SCREEN, URINE NEGATIVE (NEGATIVE); OPIATE SCREEN,URINE NEGATIVE (NEGATIVE)
[2022-04-26 08:20] LABS: COCAINE SCREEN,URINE NEGATIVE (NEGATIVE)
[2022-04-26 08:24] LABS: PHENCYCLIDINE SCREEN,URINE NEGATIVE (NEGATIVE)
[2022-04-26] MEDS ORDERED: IBUPROFEN 600 MG TABLET PO ONE (09:15)
[2022-04-26 10:20] VITALS: BP 139/84
== END 2022-04-26 10:48 | disposition home or self-care (01) ==
LOC: EMS 06:17
DX: R45.851 Suicidal ideations (principal); F20.9 Schizophrenia, unspecified; F31.9 Bipolar disorder, unspecified; F17.210 Nicotine dependence, cigarettes, uncomplicated; F12.90 Cannabis use, unspecified, uncomplicated; F15.10 Other stimulant abuse, uncomplicated
CPT/HCPCS: 99285; 80053; 85025; 36415; 80307; G0480; 99283

== ENCOUNTER 2022-07-10 10:07 | Inpatient (IN) | payer MEDICAID ==
[~2022-07-10] VITALS: Ht 177.8 cm; Wt 82.7 kg
[2022-07-10 11:11] LABS: AMPHET/METH SCREEN,URINE POSITIVE (NEGATIVE); BARBITURATE SCREEN, URINE NEGATIVE (NEGATIVE); BENZODIAZEPINES SCREEN,URINE NEGATIVE (NEGATIVE); CANNABINOID SCREEN,URINE NEGATIVE (NEGATIVE); COCAINE SCREEN,URINE NEGATIVE (NEGATIVE); METHADONE SCREEN, URINE NEGATIVE (NEGATIVE); OPIATE SCREEN,URINE NEGATIVE (NEGATIVE)
[2022-07-10 11:12] LABS: PHENCYCLIDINE SCREEN,URINE NEGATIVE (NEGATIVE)
[2022-07-10 11:15] LABS: BASOPHILS % (AUTO) 0.5 % (0.0-2.0); EOSINOPHILS % (AUTO) 0 % (1.0-6.0); HEMATOCRIT 41.2 % (41-53); HEMOGLOBIN 13.9 g/dL (13.5-17.5); LYMPHOCYTES # (AUTO) 1.7 K/uL (1.0-4.8); LYMPHOCYTES % (AUTO) 15.8 % (22.0-44.0); MEAN CORPUSCULAR HEMOGLOBIN 29.6 pg (26.0-34.0); MEAN CORPUSCULAR HGB CONC 33.8 G/dL (31.0-37.0); MEAN CORPUSCULAR VOLUME 87 fL (80-100); MONOCYTES # (AUTO) 1.3 K/uL (0.1-1.0); MONOCYTES % (AUTO) 11.7 % (2.0-9.0); NEUTROPHILS # (AUTO) 7.8 K/uL (1.8-7.7); PLATELET COUNT (AUTO) 238 K/uL (150-450); RED BLOOD CELL COUNT(AUTO) 4.72 MIL/uL (4.50-5.90); RED CELL DISTRIBUTION WIDTH 12.8 % (11.5-14.5)
[2022-07-10] MEDS ORDERED: CITA-144 PO (11:15)
[2022-07-10] MEDS ORDERED: OLAN7.5T22 PO (11:15)
[2022-07-10 11:25] LABS: ANION GAP 4 mmol/L (8-16); CALCIUM, TOTAL 9.6 mg/dL (8.8-10.5); CARBON DIOXIDE 30 mmol/L (22-29); CHLORIDE 103 mmol/L (98-107); CREATININE 1.27 mg/dL (0.60-1.30); GLUCOSE,RANDOM 106 mg/dL (70-110); POTASSIUM 4.4 mmol/L (3.5-5.1); SODIUM SERUM 137 mmol/L (136-145); UREA NITROGEN, BLOOD 12 mg/dL (7-18)
[2022-07-10 11:28] LABS: GLOMERULAR FILTR. RATE CALC > 60 mL/min (>60)
[2022-07-10 11:31] LABS: ALANINE AMINOTRANSFERASE 53 U/L (12-78); ALBUMIN 4.2 g/dL (3.4-5.0); ALKALINE PHOSPHATASE 82 U/L (46-116); ASPARTATE AMINOTRANSFERASE 36 U/L (15-37); BILIRUBIN,TOTAL 0.6 mg/dL (0.1-1.0); TOTAL PROTEIN, SERUM 7.9 g/dL (6.4-8.2)
[2022-07-10 11:48] LABS: COVID AG,FIA SOURCE NASAL SWAB
[2022-07-10] MEDS ORDERED: ZOLPIDEM TARTRATE 10 MG TABLET PO PRN (13:00)
[2022-07-10 15:09] VITALS: BP 133/96
[2022-07-10 15:17] VITALS: BP 133/96
[2022-07-10 16:54] VITALS: BP 122/81
[2022-07-10] MEDS: HALOPERIDOL 5 MG TABLET PO PRN (18:24)
[2022-07-10] MEDS: LORazepam 2 MG TABLET PO PRN (18:24)
[2022-07-11 08:00] VITALS: BP 126/73
[2022-07-11] MEDS ORDERED: PETROLATUM,WHITE 28 GM JELLY TP PRN (09:30)
[2022-07-11] MEDS ORDERED: LOPERAMIDE HCL 2 MG CAPSULE PO PRN (09:30)
[2022-07-11] MEDS ORDERED: DOCUSATE SODIUM 100 MG CAPSULE PO PRN (09:30)
[2022-07-11] MEDS ORDERED: ACETAMINOPHEN 325 MG TABLET PO PRN (09:30)
[2022-07-11] MEDS ORDERED: ONDANSETRON HCL 4 MG TABLET PO PRN (09:30)
[2022-07-11] MEDS ORDERED: MAG HYDROX/AL HYDROX/SIMETH ES 30 ML SUSPENSION UDCUP PO PRN (09:30)
[2022-07-11] MEDS ORDERED: NICOTINE 14 MG/24 HOUR PATCH TD PRN (09:30)
[2022-07-11] MEDS ORDERED: MAGNESIUM HYDROXIDE SUSPENSION 30 ML UDCUP PO PRN (09:30)
[2022-07-11] MEDS ORDERED: CloNIDine HCL 0.1 MG TABLET PO PRN (09:30)
[2022-07-11] MEDS ORDERED: ALBUTEROL SULFATE HFA 90 MCG/PUFF 8 GM INHALER IH PRN (09:30)
[2022-07-11] MEDS ORDERED: GuaiFENesin/D-METHORPHAN [SUGAR-FREE] 200-20MG/10 ML SYRUP UDCUP PO PRN (09:30)
[2022-07-11] MEDS: CITALOPRAM HYDROBROMIDE 20 MG TABLET PO SCH (11:53)
[2022-07-11] MEDS: OLANZapine 5 MG TABLET PO SCH (11:53)
[2022-07-11 16:02] VITALS: BP 111/63
[2022-07-11] MEDS: HALOPERIDOL 5 MG TABLET PO PRN (20:51)
[2022-07-11] MEDS: OLANZapine 10 MG TABLET PO SCH (20:51)
[2022-07-11] MEDS: LORazepam 2 MG TABLET PO PRN (20:51)
[2022-07-11 21:14] VITALS: BP 115/70
[2022-07-12 08:00] VITALS: BP 111/64
[2022-07-12] MEDS: CITALOPRAM HYDROBROMIDE 20 MG TABLET PO SCH (08:37)
[2022-07-12] MEDS: OLANZapine 5 MG TABLET PO SCH (08:37)
[2022-07-12 16:36] VITALS: BP 124/80
[2022-07-12] MEDS: HALOPERIDOL 5 MG TABLET PO PRN (21:15)
[2022-07-12] MEDS: OLANZapine 10 MG TABLET PO SCH (21:15)
[2022-07-12] MEDS: LORazepam 2 MG TABLET PO PRN (21:16)
[2022-07-13 08:00] VITALS: BP 134/75
[2022-07-13] MEDS: LORazepam 2 MG TABLET PO PRN ×2 (09:32→20:56)
[2022-07-13] MEDS: OLANZapine 5 MG TABLET PO SCH (09:32)
[2022-07-13] MEDS: CITALOPRAM HYDROBROMIDE 20 MG TABLET PO SCH (09:32)
[2022-07-13 16:36] VITALS: BP 103/60
[2022-07-13] MEDS: HALOPERIDOL 5 MG TABLET PO PRN (20:56)
[2022-07-13] MEDS: OLANZapine 10 MG TABLET PO SCH (20:56)
[2022-07-14 09:00] VITALS: BP 93/49
[2022-07-14] MEDS: OLANZapine 5 MG TABLET PO SCH (09:57)
[2022-07-14] MEDS: CITALOPRAM HYDROBROMIDE 20 MG TABLET PO SCH (09:57)
[2022-07-14 17:07] VITALS: BP 126/71
[2022-07-14] MEDS: OLANZapine 10 MG TABLET PO SCH (20:21)
[2022-07-14] MEDS: LORazepam 2 MG TABLET PO PRN (20:21)
[2022-07-14] MEDS: HALOPERIDOL 5 MG TABLET PO PRN (20:21)
[2022-07-15 08:00] VITALS: BP 126/76
[2022-07-15] MEDS: CITALOPRAM HYDROBROMIDE 20 MG TABLET PO SCH (09:07)
[2022-07-15] MEDS: OLANZapine 5 MG TABLET PO SCH (09:08)
[2022-07-15 16:00] VITALS: BP 120/65
[2022-07-15] MEDS: OLANZapine 10 MG TABLET PO SCH (20:08)
[2022-07-16 06:43] LABS: COVID AG,FIA SOURCE NASAL SWAB
[2022-07-16 08:54] VITALS: BP 129/75
[2022-07-16] MEDS: CITALOPRAM HYDROBROMIDE 20 MG TABLET PO SCH (09:14)
[2022-07-16] MEDS: OLANZapine 5 MG TABLET PO SCH (09:14)
[2022-07-16 16:05] VITALS: BP 141/75
[2022-07-16 19:20] VITALS: BP 135/90
[2022-07-16] MEDS: IBUPROFEN 400 MG TABLET PO PRN (19:21)
[2022-07-16] MEDS: OLANZapine 10 MG TABLET PO SCH (21:10)
[2022-07-17] MEDS: CITALOPRAM HYDROBROMIDE 20 MG TABLET PO SCH (08:33)
[2022-07-17] MEDS: OLANZapine 5 MG TABLET PO SCH (08:33)
[2022-07-17 09:00] VITALS: BP 121/77
[2022-07-17 16:21] VITALS: BP 129/79
[2022-07-17] MEDS: IBUPROFEN 400 MG TABLET PO PRN (16:29)
[2022-07-17] MEDS: OLANZapine 10 MG TABLET PO SCH ×2 (19:55→20:27)
[2022-07-18 08:00] VITALS: BP 139/77
[2022-07-18] MEDS: OLANZapine 5 MG TABLET PO SCH (08:30)
[2022-07-18] MEDS: CITALOPRAM HYDROBROMIDE 20 MG TABLET PO SCH (08:30)
[2022-07-18] MEDS ORDERED: CITA-144 PO ×2 (08:50→11:32)
[2022-07-18] MEDS ORDERED: OLAN10TA74 PO (08:51)
[2022-07-18] MEDS ORDERED: OLAN5TAB52 PO ×2 (08:51→11:32)
[2022-07-18] MEDS ORDERED: OLAN10 PO (11:32)
== END 2022-07-18 09:15 | disposition home or self-care (01) | DRG 750 ==
LOC: EMS 10:14 → 3EI 13:32 → MERGE 13:32 → 3EI 14:44
PROVIDERS: ADMIT Psychiatry & Neurology Child & Adolescent Psychiatry; ATTEND Psychiatry & Neurology Child & Adolescent Psychiatry
DX: F20.0 Paranoid schizophrenia (principal); R45.851 Suicidal ideations; F10.10 Alcohol abuse, uncomplicated; F17.210 Nicotine dependence, cigarettes, uncomplicated; R03.0 Elevated blood-pressure reading, without diagnosis of hypertension; F19.10 Other psychoactive substance abuse, uncomplicated; Z20.822 Contact with and (suspected) exposure to COVID-19; F15.10 Other stimulant abuse, uncomplicated; F32.A Depression, unspecified; F41.9 Anxiety disorder, unspecified; G47.00 Insomnia, unspecified; Z71.41 Alcohol abuse counseling and surveillance of alcoholic; Z59.00 Homelessness unspecified
CPT/HCPCS: 80053; 85025; 99285; G0480